=== PATIENT | male | born 1945 | race Caucasian/White ===

== ENCOUNTER 2016-07-24 16:13 | Inpatient (IN) | payer OTHER ==
[~2016-07-24] VITALS: Ht 175.3 cm; Wt 47.6 kg
--- NOTE | ~2016-07-24 | HC ---
[facility] [address] [place] [address] CONSULTATION Name: MARCUS JACOBO Room #: 461-P ADM IN M.R.#: [id number] Admission: 07/24/16 Attend Phys: Obie Ludwig MD Discharge: Date of : 47 Report #: [id number] THIS REPORT FOR: //name// CC: KENNETH physician/PCP Obie Ludwig ADDENDUM LABORATORY DATA: Creatinine 1.9, albumin 3.1. White blood cell 17.2. CT without acute findings. Chest x-ray negative. ASSESSMENT AND PLAN: The patient is a 71-year-old male with the following medical concerns. 1. Severe protein calorie malnutrition. Concern at this time for overall care. I believe this is likely related to dysphagia. The patient has refused evaluation for this including lab work any further. The patient states that he would like to pursue hospice care, although he would only like to do so at home in [place]. The patient is clearly not in good enough health for travel at this time as he states he would like to fly to [place]. The patient does not understand the current concerns with regards to travel and the patient also believes he can continue to drive, although he cannot sit at bedside. The patient currently is in my opinion not a capacity for decision making at this time. I am concerned that not only is there possibly cognitive impairment, but also that his depression may be highly weighing on his decision making. I am consulting psychiatry for further evaluation as well and if their assessment is the patient does not have capacity for decision making, I believe that we should activate his durable power of workers compensation defense attorney. 2. Dysphagia. I have discussed this with family and patient. Concerned here is with regards to Crohn's and need for EGD. The patient has refused this in the past. Although the patient has refused, family agrees with his refusal and reports that they would like to pursue hospice care as does the patient, although they believe the patient is to pursue hospice care in the [facility] area. At this time, I do think the patient would benefit from their services or at the very minimum that we should activate his durable power of workers compensation defense attorney and discussed with both his son and his cousin to have a mutual agreement that that should be pursued in the [facility]. I have discussed this with case management as well. I would like patient to meet with a hospice house in the [facility] or at least hospice companies to discuss this. 3. Cognitive impairment. At this time, I believe the patient does have signs or symptoms consistent with mild dementia symptoms, although it is difficult to say that he does not have underlying delirium given urinary tract infection and possibly hypoxic respiratory failure. We will continue to evaluate patient for capacity, but have again consulted psychiatry at this time. 4. Acute hypoxic respiratory failure, currently on 2 liters O2 nasal cannula. No apparent origin at this time, although may be secondary to urinary tract infection. Chest x-ray appears to be negative. White blood cells are [facility] [address] [place] [address] CONSULTATION Name: MARCUS JACOBO Ana Room #: 461-P [facility] IN M.R.#: [id number] Admission: 07/24/16 Attend Phys: Obie Ludwig MD Discharge: Date of : 47 Report #: [id number] increased. He is currently on antibiotics. We will follow progress of this. 5. Depression. I believe this to be severe at this time. Again, I have consulted psychiatry. Unfortunately, medication treatment will be unlikely to be effective for some weeks now. Again, discussion as above, voluntary of advanced directive with family and patient and spent approximately 45 minutes on this. I have confirmed with the patient's family and the patient that he is DNR. We will change that status for him. 6. Crohn's disease. Again, management per primary team. I appreciate their recommendations. I will continue to follow with this patient. Please let us know of any changes with regards to his current care. I will be consulting again in the morning to determine further course of action at this time. <ELECTRONICALLY SIGNED> By: Kg Elena DO 07/28/16 1119 42 31 Kg Elena DO /nt
--- NOTE | ~2016-07-24 | HC ---
[facility] [place] [address] CONSULTATION Name: MARCUS JACOBO Room #: 461-P [facility] IN M.R.#: [id number] Admission: 07/24/16 Attend Phys: Obie Ludwig MD Discharge: 07/28/16 Date of : 47 Report #: [id number] THIS REPORT FOR: //name// CC: KENNETH physician/PCP bOie Ludwig DATE OF SERVICE: 07/26/2016 HISTORY OF PRESENT ILLNESS: This gentleman was admitted here from a motel room. He had been visiting from [place]. Family is very concerned about the weight loss and exacerbation of physical symptoms in recent weeks. Apparently, he was found in a motel room lying in a pool of his own bodily fluids. The patient has possibly had exacerbation of Crohn's, but also some sepsis on top of malnutrition and failure to thrive. The patient is expressing that he is open to rehabilitation, but is against any kind of aggressive or invasive treatments. The patient has expressed that he is ready to pass and "go to sleep and be with parents." However, he also makes it very clear that he does not intend to do anything to expedite this process. Specifically, "I'm not going to consult "Dr. Branch" or put a bag over my head". The patient is hopeful to eventually return to his residence in [place]. He denies that there is any depression that is affecting his choices. He simply does not want any more aggressive treatments. PAST PSYCHIATRIC HISTORY: He has had some counseling in the distant past. There has not been any recent psychiatric treatment. FAMILY HISTORY: I believe there is a family history of dementia. PAST MEDICAL HISTORY: Dehydration, failure to thrive, sepsis, weakness, malnutrition, Crohn's disease, hypothyroidism, and gender identity disorder. The patient has had at least 6 surgeries with respect to his Crohn's disease. He has been going to [facility] approximately once a year. He is on prednisone. He continues to smoke and notes the smoking cessation patch was too risky to take with his estrogen treatments. He has been on treatment for gender identity disorder with estrogen for almost a decade. SOCIAL HISTORY: He lives in [place], lives with son and veeaoxwr-pc-fje. Hwvonrzi-km-qlk met with me afterwards and she and her cousin (in from [place]) are concerned about his increasing reliance upon them. They are worried about behaviors that are suggestive of hoarding, including not throwing out old and foods. They feel he is not eating properly or taking good care of himself. His son is the financial power of attorney law clerk and his cousin is the healthcare power of attorney law clerk. The cousin has wanted to activate the healthcare power of attorney law clerk in the past, but upon consultation with the patient's private attorney law clerk in [place], "they told me he would've to either be in [facility] or [address] [address] CONSULTATION Name: MARCUS JACOBO Room #: 461-P [facility] IN M.R.#: [id number] Admission: 07/24/16 Attend Phys: Obie Ludwig MD Discharge: 07/28/16 Date of : 47 Report #: [id number] completely out of his mind for me to step in." It does not appear there is any active drug use. MENTAL STATUS EXAM: male, ectomorphic build, appears malnourished. Stable mood and affect. Speech is normal and spontaneous. No formal thought disorder. Passive thoughts of , but no intent or plan to harm self. No homicidal ideation, no hallucinations, no delusions. Insight and judgment fair. DIAGNOSES: AXIS I: Adjustment disorder with depressed mood, gender identity disorder. AXIS II: Deferred. AXIS III: Crohn's, failure to thrive, sepsis. AXIS IV: Severe. AXIS V: 50. Dict RECOMMENDATIONS: At this point, it appears the gentleman has capacity to make his own wishes. He is aware of the medical diseases he is suffering with, but at this point, he is declining any further aggressive treatments for Crohn's disease. He also is deferring blood draws and aggressive treatment for sepsis, it appears. Nevertheless, he is open to going to a rehab unit and recovering as much as possible over a few weeks hopefully allow himself to return to [place]. Family is very concerned that he simply wants to go to [place] to and that his depression, self-care and cognition, especially short-term memory, is increasing. DICTATION ENDS HERE. By: 1227 1634 Trey Henriquez MD /nt
--- NOTE | ~2016-07-24 | HC ---
[facility] [place] [address] CONSULTATION Name: MARCUS JACOBO Room #: 461-P [facility] IN M.R.#: [id number] Admission: 07/24/16 Attend Phys: Obie Ludwig MD Discharge: 07/28/16 Date of : 47 Report #: [id number] THIS REPORT FOR: //name// CC: KENNETH physician/PCP Obie Ludwig DATE OF SERVICE: 07/27/2016 HISTORY OF PRESENT ILLNESS: This is a 71-year-old white male who presented to [facility] after being found by his cousin and fbacolxu-vr-qod in an extended stay hotel room with inability to care for himself, yelling out in pain. He had had a 17-pound weight loss. He was found to have acute renal failure. Long history of tobacco abuse. He has a history of Crohn's disease status post colectomy and colostomy. History of dysphagia and has had multiple EGDs with dilation with care through the [facility] and has seen a GI doctor in [place] as well. He has been evaluated here with essentially failure to thrive and severe protein-calorie malnutrition. Noted to have generalized deconditioning. He has been seen by palliative care, does not want hospice. We are seeing him in rehabilitation medicine consultation. PAST MEDICAL HISTORY: Includes Crohn's status post colectomy and colostomy, possible COPD, depression, GERD, gender identity disorder, gout, TIA, hypothyroidism. PAST SURGICAL HISTORY: Includes ventral hernia repair, colectomy and colostomy. ALLERGIES: FLAGYL, PENICILLIN AND SULFA. MEDICATIONS: Please see the full medication listing. FAMILY HISTORY: Mother has dementia, aunt dementia, maternal granddaughter with Crohn's. MEDICATIONS: Please see the full medication listing. SOCIAL HISTORY: Lived in [place] and then moved to [facility]. He comes back twice a year for the [place]. He has been staying in an extended hotel. He lives in [place] apparently living with his son and cxlyrgnp-er-kwu. REVIEW OF SYSTEMS: Did not offer any current complaints of chest pain, shortness of breath or abdominal discomfort. He does not want to have any further esophageal dilatations here and notes that he will have them back in [place] [place] [facility]. His goal is to get stronger and get back to [facility]. Complains of overall muscular weakness. No fever or chills. [facility] [address] [place] [address] CONSULTATION Name: MARCUS JACOBO Room #: 461-P [facility] IN [facility].#: [id number] Admission: 07/24/16 Attend Phys: Obie Ludwig MD Discharge: 07/28/16 Date of : 47 Report #: [id number] PHYSICAL EXAMINATION: GENERAL: He is a 71-year-old white male who appeared quite cachectic, unkempt, otherwise pleasant, follows basic commands. Appears to be appropriate with his history. NEUROLOGIC: Facies appeared symmetric. Functional range of motion of both upper and lower extremities. Strength is a grade 4- to 3+/5. DTRs are decreased. He is min assist with transfers, gait 35 feet contact guard. ASSESSMENT: A 71-year-old white male with the following problem list: 1. Severe protein-calorie malnutrition. 2. Generalized deconditioning. 3. Acute hypoxic respiratory failure that appears to have resolved. 4. Failure to thrive. 5. Disposition issues. PLAN: He does not want to go to hospice. He wants to further improve his strength and endurance to get back to [place]. He has been able to transfer with min assist and ambulate short distances, contact guard 35 feet. Did not feel that he meets criteria for an acute 5 North rehab stay and would recommend a senior living facility stay, which he is in the process of considering. Thank you for asking us to assist in this patient's care. <ELECTRONICALLY SIGNED> By: Faraz Smith MD 08/02/16 1825 1320 1457 Faraz Smith MD /nt
--- NOTE | ~2016-07-24 | EKG ---
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: ro mariscal : 1945 Requested By: Fanny Gill Order Number: [id number] MD: Emiliano Doss Measurements Intervals [place] Rate: 107 P: 86 MO: 139 QRS: -80 QRSD: 73 T: 84 QT: 327 QTc: 437 Interpretive Statements Sinus tachycardia Right atrial enlargement Inferior infarct, old Baseline wander in lead(s) V6 No previous ECG available for comparison Electronically Signed On 07-25-2016 7:56:10 CDT by Emiliano Doss [email or web address] <ELECTRONICALLY SIGNED> By: Emiliano Doss MD, [facility] 07/25/16 0756 30 30 Emiliano Doss MD, [facility] /EPI
--- NOTE | ~2016-07-24 | EKG ---
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
[2016-07-24 16:14] VITALS: BP 111/79
[2016-07-24 16:47] LABS: HEMATOCRIT 48.1 % (42.0-52.0); HEMOGLOBIN 16.6 gm/dL (14.0-18.0); MANUAL DIFF YES; MCH 29.9 pg (26.0-34.0); MCHC 34.5 g/dL (28.0-37.0); MCV 86.8 fL (80.0-100.0); PLATELET COUNT 298 thou/uL (150-400); RBC 5.54 mil/uL (4.50-6.00); RDW 13.8 % (10.5-14.5); WBC 17.2 thou/uL (4.0-11.0)
[2016-07-24 16:56] LABS: CALCIUM 9.9 mg/dL (8.5-10.1); CREATININE 1.9 mg/dL (0.7-1.3)
[2016-07-24 16:59] LABS: ALBUMIN 3.1 g/dL (3.4-5.0); DIRECT BILIRUBIN 0.6 mg/dL (<0.1-0.3); MAGNESIUM 2.2 mg/dL (1.8-2.4); TOTAL BILIRUBIN 1.3 mg/dL (<0.1-1.0); TOTAL PROTEIN 8.7 g/dL (6.4-8.2)
[2016-07-24 17:17] LABS: TOTAL CELL COUNT 100
[2016-07-24 17:18] LABS: ANISOCYTOSIS 2+; POLYCHROMASIA OCCASIONAL
[2016-07-24] MEDS ORDERED: ALLOPURINOL 30300 M2 PO (17:19)
[2016-07-24] MEDS ORDERED: NORVASC5 MG PO (17:20)
[2016-07-24] MEDS ORDERED: ESTRADIOL 1 MG T1 M1 PO (17:20)
[2016-07-24] MEDS ORDERED: ALDACTONE25 MG PO ×2 (17:42→23:31)
[2016-07-24] MEDS ORDERED: OMEPRAZOLE20 M2 PO (17:42)
[2016-07-24] MEDS ORDERED: LEVOTHYROXINE 0.15MG PO (17:43)
[2016-07-24] MEDS ORDERED: PREDNISONE 5 MG5 M1 PO ×3 (17:43→20:52)
[2016-07-24 18:26] LABS: URINE BILIRUBIN 2+ (Negative); URINE BLOOD 3+ (Negative); URINE GLUCOSE-RANDOM* NEGATIVE (Negative); URINE KETONES TRACE (Negative); URINE LEUKOCYTES-REFLEX 1+ (Negative); URINE PROTEIN (DIPSTICK) 2+ (Negative); URINE SPECIFIC GRAVITY >= 1.030 (1.003-1.035)
[2016-07-24 18:29] LABS: ICTOTEST (BILI CONFIRMATORY) Negative (Negative); URINE COLOR AMBER
[2016-07-24 18:36] LABS: CASTS None Seen /LPF (None Seen); CRYSTALS None Seen /LPF (None Seen); SQUAMOUS 0-3 Few /LPF (0-3); URINE RBC >20 Many /HPF (0-2); YEAST-REFLEX Present (None Seen)
[2016-07-24 18:37] LABS: URINE WBC-REFLEX 6-15 Few /HPF (0-5)
[2016-07-24 19:22] VITALS: BP 109/73
[2016-07-24 19:50] VITALS: BP 125/78
[2016-07-24] MEDS ORDERED: NORVASC2.5 MG PO (23:32)
[2016-07-25 00:30] VITALS: BP 111/70
[2016-07-25 04:00] VITALS: BP 105/64
[2016-07-25 07:30] VITALS: BP 130/74
[2016-07-25 11:03] VITALS: BP 105/60
[2016-07-25 15:44] VITALS: BP 105/69
[2016-07-25 19:44] VITALS: BP 90/60
[2016-07-26 04:21] VITALS: BP 101/64
[2016-07-26 08:00] VITALS: BP 114/70
[2016-07-26 11:48] VITALS: BP 108/67
[2016-07-26 15:30] VITALS: BP 100/63
[2016-07-26 20:08] VITALS: BP 114/66
[2016-07-27 04:00] VITALS: BP 108/62
[2016-07-27 07:40] VITALS: BP 101/68
[2016-07-27 11:46] VITALS: BP 102/68
[2016-07-27 15:58] VITALS: BP 104/72
[2016-07-27 19:58] VITALS: BP 118/78
[2016-07-28 03:50] VITALS: BP 111/73
[2016-07-28 07:23] VITALS: BP 94/61
[2016-07-28 11:46] VITALS: BP 116/72
== END 2016-07-28 15:07 | DRG 871 ==
LOC: ER 16:13 → EROBS 18:10 → 4W 18:10
PROVIDERS: Emergency Medicine
DX: A41.9 Sepsis, unspecified organism (principal); E43 Unspecified severe protein-calorie malnutrition; J96.01 Acute respiratory failure with hypoxia; Z68.1 Body mass index [BMI] 19.9 or less, adult; K50.90 Crohn's disease, unspecified, without complications; N39.0 Urinary tract infection, site not specified; N17.9 Acute kidney failure, unspecified; K21.9 Gastro-esophageal reflux disease without esophagitis; F64.9 Gender identity disorder, unspecified; E86.0 Dehydration; R62.7 Adult failure to thrive; G31.84 Mild cognitive impairment of uncertain or unknown etiology; F32.9 Major depressive disorder, single episode, unspecified; F17.210 Nicotine dependence, cigarettes, uncomplicated; J44.9 Chronic obstructive pulmonary disease, unspecified; M10.9 Gout, unspecified; R13.10 Dysphagia, unspecified; E03.9 Hypothyroidism, unspecified; Z93.3 Colostomy status; Z88.2 Allergy status to sulfonamides; Z88.0 Allergy status to penicillin; Z88.8 Allergy status to other drugs, medicaments and biological substances; Z79.899 Other long term (current) drug therapy; Z90.49 Acquired absence of other specified parts of digestive tract; Z86.73 Personal history of transient ischemic attack (TIA), and cerebral infarction without residual deficits; Z82.5 Family history of asthma and other chronic lower respiratory diseases; Z81.8 Family history of other mental and behavioral disorders
CPT/HCPCS: 10045

== ENCOUNTER 2016-07-29 16:19 | Inpatient (IN) | payer OTHER ==
[~2016-07-29] VITALS: Ht 175.3 cm; Wt 45.4 kg
--- NOTE | ~2016-07-29 | HC ---
[facility] [place] [address] CONSULTATION Name: MARCUS JACOBO Room #: 429-P [facility] IN ..#: [id number] Admission: 07/29/16 Attend Phys: Mann Mccain MD Discharge: Date of : 47 Report #: [id number] THIS REPORT FOR: //name// CC: Mann Cox DATE OF SERVICE: 07/30/2016 DATE OF SERVICE: 07/30/2016. REASON FOR CONSULTATION: Esophageal stricture. HISTORY OF PRESENT ILLNESS: The patient is a 71-year-old white male admitted through the emergency room with transient food obstruction after eating lunch at [facility]. He relates that he was given the wrong tray and eating lunch, he choked on a chunk of pineapple which seemed to lodge in his esophagus. He complained of shortness of breath and dizziness on presentation to the emergency room. At this time, he does not feel any resistance or fullness prolonged in his chest, and he is swallowing saliva without difficulties. He had been recently hospitalized following an episode of aspiration pneumonia after eating at [employer]. He did not wish to pursue any further GI evaluation at that time and does not wish to pursue GI evaluation at this time as he has had multiple procedures with esophageal dilation all performed in [place]. He reports that at least 6 procedures have been done with esophageal dilation approximately every 6 months. During his previous hospitalization, he was evaluated by speech therapy and did consume thin liquid trials by straw without overt clinical signs or symptoms of aspiration. Diet was able to subsequently be advanced apparently to a soft diet. PAST MEDICAL HISTORY: He does have a history of complicated Crohn's disease requiring previous surgery with colectomy and ostomy placement. He has undergone previous hernia repair, tonsillectomy, left total hip replacement, right femur ORIF. He does have a history of chronic gastroesophageal reflux, hypertension, hyperlipidemia, renal insufficiency, previous TIA and aspiration pneumonia. HOME MEDICATIONS: Levothyroxine 0.15 mg per day, prednisone 2.5 mg per day, amlodipine 2.5 mg per day, allopurinol 300 mg per day, omeprazole 20 mg per day. ALLERGIES: METRONIDAZOLE, PENICILLIN, AND SULFAS. SOCIAL HISTORY: He does smoke cigarettes and drink alcohol. [address] [address] CONSULTATION Name: MARCUS JACOBO Room #: 429-P [facility] IN ..#: [id number] Admission: 07/29/16 Attend Phys: Mann Mccain MD Discharge: Date of : 47 Report #: [id number] REVIEW OF SYSTEMS: CONSTITUTIONAL: He denies fevers or chills. HEENT: He is able tolerate swallowing liquids and saliva. RESPIRATORY: He does have chronic COPD, but does not report increased coughing or wheezing at this point. GASTROINTESTINAL: He denies focal abdominal pain, nausea or vomiting. He does have an ostomy in place. PHYSICAL EXAMINATION: GENERAL: He appears alert and in no acute distress at rest, but elderly and cachectic with muscle wasting. VITAL SIGNS: Afebrile, blood pressure 110/70, pulse 63, and respiratory rate 16. HEENT: No scleral icterus. NECK: Supple without lymphadenopathy. HEART: Rate and rhythm are regular, without murmur. LUNGS: Auscultation of his lungs reveals decreased breath sounds with prolonged expiration, but no obvious wheezes. ABDOMEN: Soft and scaphoid with ostomy in right mid to lower abdomen with brown stool in ostomy. EXTREMITIES: He has no significant peripheral edema. LABORATORY STUDIES: On 07/29/2016, white blood cell count elevated at 15.5; hemoglobin 15.7; platelet count 203,000 with 91 segs and 6 lymphs. Initial lactic acid on 07/29/2016, was elevated at 4.3; sodium 126; potassium 4.4; chloride 89; CO2 of 27; BUN 8; creatinine 1.0. Liver enzymes were mildly elevated with total bilirubin of 1.2, direct 0.6, AST 45, ALT 21, and alkaline phosphatase 230. IMAGING STUDIES: Chest x-ray on 07/29/2016, revealed atelectatic changes, medial left lung base, but no obvious infiltrates. IMPRESSION: 1. Transient food impaction with possible aspiration pneumonia. 2. History of esophageal stricture requiring multiple dilations in the past. 3. Crohn's disease, status post colectomy and ostomy. 4. Chronic obstructive pulmonary disease. RECOMMENDATIONS: 1. May advance to clear liquids today as tolerated. 2. Further treatment options were reviewed with the patient. He does not wish [address] [address] CONSULTATION Name: MARCUS JACOBO Room #: 429-P ADM IN M.R.#: [id number] Admission: 07/29/16 Attend Phys: Mann Mccain MD Discharge: Date of : 49 Report #: [id number] to pursue repeat EGD in [place] as his other procedures have been done in [place], and he hopes to return home soon. <ELECTRONICALLY SIGNED> By: Preston Pimentel MD 07/31/16 0745 0847 1234 Preston Pimentel MD /nt
--- NOTE | ~2016-07-29 | EKG ---
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
[~2016-07-29 16:19] MED LIST: ALDACTONE25 MG PO; ALLOPURINOL 30300 M2 PO; ESTRADIOL 1 MG T1 M1 PO; LEVOTHYROXINE 0.15MG PO; NORVASC2.5 MG PO; NORVASC5 MG PO; OMEPRAZOLE20 M2 PO; PREDNISONE 5 MG5 M1 PO
[2016-07-29 16:20] VITALS: BP 123/74
[2016-07-29 17:04] LABS: HEMOGLOBIN 15.7 gm/dL (14.0-18.0); MCH 28.8 pg (26.0-34.0); MCHC 33.3 g/dL (28.0-37.0); MCV 86.6 fL (80.0-100.0); PLATELET COUNT 203 thou/uL (150-400); RBC 5.43 mil/uL (4.50-6.00); RDW 13.8 % (10.5-14.5); WBC 15.5 thou/uL (4.0-11.0)
[2016-07-29 17:10] LABS: MANUAL DIFF YES
[2016-07-29 17:15] LABS: ANION GAP 10 mmol/L (7-16); BUN 8 mg/dL (7-18); CALCIUM 9.4 mg/dL (8.5-10.1); CHLORIDE 89 mmol/L (98-107); CO2 27 mmol/L (21-32); GLUCOSE 108 mg/dL (74-106); POTASSIUM 4.4 mmol/L (3.5-5.1); SODIUM 126 mmol/L (136-145)
[2016-07-29 17:22] LABS: ALBUMIN 2.5 g/dL (3.4-5.0); ALKALINE PHOSPHATASE 230 U/L (46-116); SGOT 45 U/L (15-37); SGPT 21 U/L (30-65); TOTAL BILIRUBIN 1.2 mg/dL (<0.1-1.0); TOTAL PROTEIN 8.3 g/dL (6.4-8.2); TROPONIN-I < 0.04 ng/mL (<0.04-0.07)
[2016-07-29 17:35] LABS: ABSOLUTE NEUTROPHILS 14.1 thou/uL (1.4-8.2); TOTAL CELL COUNT 100
[2016-07-29 17:36] LABS: ANISOCYTOSIS 1+; POLYCHROMASIA OCCASIONAL
[2016-07-29 18:41] LABS: URINE BILIRUBIN NEGATIVE (Negative); URINE BLOOD 3+ (Negative); URINE COLOR YELLOW; URINE GLUCOSE-RANDOM* NEGATIVE (Negative); URINE KETONES NEGATIVE (Negative); URINE LEUKOCYTES-REFLEX TRACE (Negative); URINE PROTEIN (DIPSTICK) 2+ (Negative)
[2016-07-29 18:47] LABS: CASTS None Seen /LPF (None Seen); CRYSTALS None Seen /LPF (None Seen); SQUAMOUS None Seen /LPF (0-3); URINE WBC-REFLEX 0-5 Rare /HPF (0-5)
[2016-07-29 20:09] VITALS: BP 106/69
[2016-07-29 20:25] VITALS: BP 122/78
[2016-07-30 04:42] VITALS: BP 99/68
[2016-07-30 07:24] VITALS: BP 110/70
[2016-07-30 15:53] VITALS: BP 101/65
[2016-07-30 20:00] VITALS: BP 86/48
[2016-07-31 04:00] VITALS: BP 91/42
[2016-07-31 09:17] VITALS: BP 109/57
[2016-07-31 21:01] VITALS: BP 116/75
[2016-08-01 04:43] VITALS: BP 122/28
[2016-08-01 07:35] VITALS: BP 126/71
[2016-08-01] MEDS ORDERED: AMOXICILLIN 50500 MG PO (08:19)
[2016-08-01 16:00] VITALS: BP 119/83
== END 2016-08-01 18:00 | DRG 871 ==
LOC: ER 16:19 → EROBS 19:01 → 4E 19:01 → EROBS 19:05 → 4E 20:04
PROVIDERS: Nurse Practitioner Family
DX: A41.9 Sepsis, unspecified organism (principal); J69.0 Pneumonitis due to inhalation of food and vomit; R65.21 Severe sepsis with septic shock; E87.1 Hypo-osmolality and hyponatremia; E44.0 Moderate protein-calorie malnutrition; K50.90 Crohn's disease, unspecified, without complications; Z68.1 Body mass index [BMI] 19.9 or less, adult; K21.9 Gastro-esophageal reflux disease without esophagitis; R62.7 Adult failure to thrive; I10 Essential (primary) hypertension; K22.2 Esophageal obstruction; E78.00 Pure hypercholesterolemia, unspecified; F17.210 Nicotine dependence, cigarettes, uncomplicated; Z66 Do not resuscitate; Z96.642 Presence of left artificial hip joint; J44.9 Chronic obstructive pulmonary disease, unspecified; Z79.899 Other long term (current) drug therapy; Z93.3 Colostomy status; Z88.0 Allergy status to penicillin; Z88.2 Allergy status to sulfonamides; Z88.8 Allergy status to other drugs, medicaments and biological substances; Z82.5 Family history of asthma and other chronic lower respiratory diseases
CPT/HCPCS: 10183